=== PATIENT | female | born 1940 | race Caucasian/White ===

== ENCOUNTER 2018-06-21 11:14 | Inpatient (IN) ==
[2018-06-21] MEDS ORDERED: Chlorhexidine Gluconate 2% 1 Pack (2 Cloths) TOPICAL SCH (12:22)
[2018-06-21] MEDS ORDERED: Metoprolol Tartrate 25 MG Tablet PO SCH (12:22)
[2018-06-21] MEDS: Sodium Chlor 0.9% Inj 500 ML IV.SIG SCH (12:34)
[2018-06-21] MEDS ORDERED: ceFAZolin 2 GM Premix Inj 2 GM/50 ML PIGGYBACK IV.SIG SCH (13:00)
[2018-06-21] MEDS ORDERED: Lidocaine PF 1% Inj 5 ML Syringe OTHER ONE (14:54)
[2018-06-21] MEDS ORDERED: Sugammadex Inj 200 MG/2 ML Vial IV.PUSH ONE (15:51)
[2018-06-21] MEDS ORDERED: Naloxone Inj 0.4 MG/ML Vial IV.PUSH PRN (17:44)
[2018-06-21] MEDS ORDERED: Morphine Inj 30 MG/30 ML PCA.VIAL PCA ONE (17:59)
[2018-06-21] MEDS: Dextrose 5%/NaCl 0.9% Inj 1,000 ML IV.SIG SCH ×2 (18:07→21:43)
[2018-06-21] MEDS ORDERED: *Meperidine Inj 25 MG/ML Vial PERIprocedural Use ONLY ONE (18:19)
[2018-06-21] MEDS ORDERED: *Ondansetron Inj 4 MG/2 ML Vial PERIprocedural Use ONLY ONE (18:22)
[2018-06-21 18:29] LABS: Baso # (Auto) 0.1 th/mm3 (0.0-0.2); Baso % (Auto) 0.4 % (0.0-2.0); Eos % (Auto) 0.3 % (0.0-4.0); Hematocrit 37.7 % (35.0-46.0); Hemoglobin 12.6 gm/dL (11.6-15.3); Lymph # (Auto) 1.8 th/mm3 (1.0-4.8); Lymph % (Auto) 13.6 % (9.0-44.0); Mean Corpuscular HGB Conc 33.4 % (32.0-36.0); Mean Corpuscular Hemoglobin 31.3 pg (27.0-34.0); Mean Corpuscular Volume 93.9 fL (80.0-100.0); Mean Platelet Volume 7.3 fL (7.0-11.0); Mono # (Auto) 0.8 th/mm3 (0.0-0.9); Mono % (Auto) 5.8 % (0.0-8.0); Neut # (Auto) 10.5 th/mm3 (1.8-7.7); Neut % (Auto) 79.9 % (16.0-70.0); Platelet Count 283 th/mm3 (150-450); Red Blood Count 4.01 mil/mm3 (4.00-5.30); Red Cell Distribution Width 13.3 % (11.6-17.2); White Blood Count 13.1 th/mm3 (4.0-11.0)
[2018-06-21 18:54] LABS: Calcium 8.2 mg/dL (8.5-10.1); Carbon Dioxide 25.5 meq/L (21.0-32.0)
[2018-06-21] MEDS: Morphine Inj 30 MG/30 ML PCA.VIAL PCA PRN (18:55)
[2018-06-21] MEDS ORDERED: fentaNYL Citrate Inj 100 MCG/2 ML Ampul ONE (19:32)
[2018-06-21] MEDS: Famotidine PF Inj 20 MG/2 ML Vial IV.PUSH SCH (21:37)
[2018-06-21] MEDS: Heparin - SQ 10,000 UNITS/ML Vial SQ SCH (21:37)
[2018-06-22] MEDS: Dextrose 5%/NaCl 0.9% Inj 1,000 ML IV.SIG SCH ×5 (03:22→23:36)
[2018-06-22 06:58] LABS: Baso % (Auto) 0.3 % (0.0-2.0); Lymph # (Auto) 0.8 th/mm3 (1.0-4.8); Lymph % (Auto) 8.6 % (9.0-44.0); Mean Corpuscular HGB Conc 33.3 % (32.0-36.0); Mean Corpuscular Hemoglobin 31.6 pg (27.0-34.0); Mean Corpuscular Volume 94.9 fL (80.0-100.0); Mean Platelet Volume 7.7 fL (7.0-11.0); Mono # (Auto) 0.7 th/mm3 (0.0-0.9); Mono % (Auto) 6.7 % (0.0-8.0); Neut # (Auto) 8.2 th/mm3 (1.8-7.7); Neut % (Auto) 84.4 % (16.0-70.0); Platelet Count 251 th/mm3 (150-450); Red Blood Count 3.79 mil/mm3 (4.00-5.30); Red Cell Distribution Width 13.6 % (11.6-17.2); White Blood Count 9.8 th/mm3 (4.0-11.0)
[2018-06-22 07:41] LABS: Calcium 7.6 mg/dL (8.5-10.1); Potassium 3.8 meq/L (3.5-5.1)
[2018-06-22] MEDS: Heparin - SQ 10,000 UNITS/ML Vial SQ SCH ×2 (10:19→20:53)
[2018-06-22] MEDS: Famotidine PF Inj 20 MG/2 ML Vial IV.PUSH SCH ×2 (10:20→20:54)
[2018-06-22] MEDS: Sodium Chlor 0.9% Inj 500 ML IV.SIG SCH (10:20)
--- NOTE | 2018-06-22 11:08 | P.PN ---
Subjective Interval history: POD#1 s/p robotic assisted ascending colectomy nausea Physical Exam Vital signs: Vital Signs 06/21/18 12:12 06/21/18 17:51 06/21/18 18:00 Temperature 98.6 F 97.3 F L Pulse Rate 86 83 82 Respiratory Rate 16 16 20 Blood Pressure 143/74 H 141/68 H 152/67 H Pulse Oximetry 96 100 99 06/21/18 18:15 06/21/18 18:30 06/21/18 18:38 Temperature 98.0 F Pulse Rate 82 80 Respiratory Rate 16 11 L Blood Pressure 148/63 H 163/72 H Pulse Oximetry 100 95 100 06/21/18 18:56 06/21/18 19:00 06/21/18 19:30 Temperature Pulse Rate 80 Respiratory Rate 15 16 Blood Pressure Pulse Oximetry 06/21/18 20:00 06/21/18 21:00 06/21/18 22:00 Temperature Pulse Rate 82 84 81 Respiratory Rate 16 Blood Pressure 157/70 H Pulse Oximetry 95 06/21/18 23:00 06/21/18 23:45 06/22/18 00:00 Temperature 98.1 F Pulse Rate 82 76 78 Respiratory Rate 16 Blood Pressure 159/68 H Pulse Oximetry 95 06/22/18 01:00 06/22/18 02:00 06/22/18 03:00 Temperature 99.0 F Pulse Rate 80 82 81 Respiratory Rate 18 Blood Pressure 151/69 H Pulse Oximetry 95 06/22/18 04:00 06/22/18 05:00 06/22/18 06:00 Temperature Pulse Rate 84 85 84 Respiratory Rate Blood Pressure Pulse Oximetry Intake & Output 06/21/18 06/22/18 06/22/18 18:59 06:59 18:59 Intake Total 1850 / 1850 1490 / 1490 1100 / 1100 Output Total 300 / 300 550 / 550 Balance 1550 / 1550 940 / 940 1100 / 1100 Weight 62.2 kg 65 kg Intake: IV 150 / 150 1300 / 1300 1100 / 1100 D5W/Normal Saline Inj 1,000 ML 1000 / 1000 1000 / 1000 @ 125 mls/hr IV.SIG .Q8H [facility] Rx #:[id number] Ancef Inj 1,000 MG In NS Inj 200 / 200 100 ML @ 200 mls/hr IV.SIG Q8H [facility] Rx#:[id number] Flagyl 500 MG Inj 100 ML @ 200 100 / 100 100 / 100 100 / 100 mls/hr IV.SIG Q8H [facility] Rx#: [id number] Oral 190 / 190 Anesthesia Amount 1700 / 1700 Output: Estimated Blood Loss 50 / 50 Urine Amount (Catheter) 250 / 250 550 / 550 Indwelling Urethral Catheter 250 / 250 550 / 550 Other: Weight On Admission 62.2 kg - Routine Abdominal Exam Comments: Soft, nondistended, tender Dressings c/d/i - Urinary Catheter Management Indwelling Urethral Catheter Cath placed during this visit: yes Reason for continuing: Hourly intake/output Insertion date: 06/21/18 Insertion time: 15:10 Results - Labs CBC & Chem 7: 06/22/18 06:09 06/22/18 06:09 Laboratory Results - last 24 hr 06/21/18 06/21/18 06/21/18 11:48 18:09 18:09 WBC 13.1 H RBC 4.01 Hgb 12.6 Hct 37.7 MCV 93.9 MCH 31.3 MCHC 33.4 RDW 13.3 Plt Count 283 MPV 7.3 Neut % (Auto) 79.9 H Lymph % (Auto) 13.6 [place] % (Auto) 5.8 Eos % (Auto) 0.3 Baso % (Auto) 0.4 Neut # (Auto) 10.5 H Lymph # (Auto) 1.8 [place] # (Auto) 0.8 Eos # (Auto) 0.0 Baso # (Auto) 0.1 WBC Differential . Differential Comment Auto diff final Sodium 140 Potassium 4.0 Chloride 105 Carbon Dioxide 25.5 Anion Gap 10 BUN 14 Creatinine 0.89 Estimated GFR 61 L Random Glucose 131 H Calcium 8.2 L Blood Type A Positive Blood Type Recheck Not needed Antibody Screen Negative 06/22/18 06/22/18 06:09 06:09 WBC 9.8 RBC 3.79 L Hgb 12.0 Hct 36.0 MCV 94.9 MCH 31.6 MCHC 33.3 RDW 13.6 Plt Count 251 MPV 7.7 Neut % (Auto) 84.4 H Lymph % (Auto) 8.6 L [place] % (Auto) 6.7 Eos % (Auto) 0.0 Baso % (Auto) 0.3 Neut # (Auto) 8.2 H Lymph # (Auto) 0.8 L [place] # (Auto) 0.7 Eos # (Auto) 0.0 Baso # (Auto) 0.0 WBC Differential . Differential Comment Auto diff final Sodium 141 Potassium 3.8 Chloride 106 Carbon Dioxide 27.0 Anion Gap 8 BUN 10 Creatinine 0.82 Estimated GFR 67 L Random Glucose 203 H Calcium 7.6 L Blood Type Blood Type Recheck Antibody Screen Assessment and Plan - Assessment (1) Polyp of ascending colon Code(s): D12.2 - Benign neoplasm of ascending colon Status: Acute Plan: Try phenergan for nausea decrease IVF, lasix Mobilize D/C barlow
[2018-06-22] MEDS: Morphine Inj 30 MG/30 ML PCA.VIAL PCA PRN (18:30)
[2018-06-22] MEDS ORDERED: Temazepam 15 MG Capsule PO PRN (20:10)
[2018-06-23] MEDS: Dextrose 5%/NaCl 0.9% Inj 1,000 ML IV.SIG SCH ×2 (02:29→15:06)
[2018-06-23 04:26] LABS: Baso % (Auto) 0.2 % (0.0-2.0); Hematocrit 40.4 % (35.0-46.0); Hemoglobin 13.6 gm/dL (11.6-15.3); Lymph # (Auto) 0.6 th/mm3 (1.0-4.8); Lymph % (Auto) 5.1 % (9.0-44.0); Mean Corpuscular HGB Conc 33.7 % (32.0-36.0); Mean Corpuscular Hemoglobin 31.2 pg (27.0-34.0); Mean Corpuscular Volume 92.6 fL (80.0-100.0); Mean Platelet Volume 7.7 fL (7.0-11.0); Mono # (Auto) 0.4 th/mm3 (0.0-0.9); Mono % (Auto) 3.7 % (0.0-8.0); Neut # (Auto) 10.5 th/mm3 (1.8-7.7); Platelet Count 284 th/mm3 (150-450); Red Blood Count 4.36 mil/mm3 (4.00-5.30); Red Cell Distribution Width 13.6 % (11.6-17.2); White Blood Count 11.5 th/mm3 (4.0-11.0)
[2018-06-23 04:52] LABS: Calcium 8.1 mg/dL (8.5-10.1); Carbon Dioxide 26.4 meq/L (21.0-32.0); Potassium 3.1 meq/L (3.5-5.1)
[2018-06-23] MEDS: Heparin - SQ 10,000 UNITS/ML Vial SQ SCH ×2 (09:11→20:55)
[2018-06-23] MEDS: Famotidine PF Inj 20 MG/2 ML Vial IV.PUSH SCH ×2 (09:12→20:55)
--- NOTE | 2018-06-23 11:51 | P.PN ---
Subjective Interval history: POD#2 s/p robotic assisted ascending colectomy still with nausea, some flatus Physical Exam Vital signs: Vital Signs 06/22/18 12:00 06/22/18 13:00 06/22/18 14:00 Temperature Pulse Rate 88 89 89 Respiratory Rate Blood Pressure Pulse Oximetry 06/22/18 15:00 06/22/18 16:00 06/22/18 17:00 Temperature 98 F Pulse Rate 98 H 93 H 92 H Respiratory Rate 16 Blood Pressure 164/79 H Pulse Oximetry 94 L 06/22/18 18:00 06/22/18 19:00 06/22/18 20:00 Temperature 98.4 F Pulse Rate 96 H 90 90 Respiratory Rate 16 Blood Pressure 175/79 H Pulse Oximetry 95 06/22/18 21:00 06/22/18 22:00 06/22/18 23:00 Temperature 98.5 F Pulse Rate 98 H 88 86 Respiratory Rate 20 Blood Pressure 183/88 H Pulse Oximetry 93 L 06/23/18 00:00 06/23/18 01:00 06/23/18 02:00 Temperature Pulse Rate 80 82 84 Respiratory Rate Blood Pressure Pulse Oximetry 06/23/18 03:00 06/23/18 04:00 06/23/18 05:00 Temperature 98.4 F Pulse Rate 95 H 82 87 Respiratory Rate 16 Blood Pressure 151/67 H Pulse Oximetry 94 L 06/23/18 06:00 06/23/18 07:00 06/23/18 08:00 Temperature 97.9 F Pulse Rate 86 101 H 84 Respiratory Rate 18 Blood Pressure 158/72 H Pulse Oximetry 93 L 06/23/18 09:00 06/23/18 10:00 06/23/18 11:00 Temperature 98.3 F Pulse Rate 93 H 82 95 H Respiratory Rate 17 Blood Pressure 155/87 H Pulse Oximetry 95 Intake & Output 06/22/18 06/23/18 06/23/18 18:59 06:59 18:59 Intake Total 1974 / 1974 1240 / 1240 Output Total 1400 / 1400 900 / 900 Balance 575 / 575 340 / 340 Weight 64.5 kg Intake: IV 1300 / 1300 1000 / 1000 D5W/Normal Saline Inj 1,000 ML 1000 / 1000 1000 / 1000 @ 75 mls/hr IV[facility]SIG [id number] [facility] Rx#:[id number] Ancef Inj 1,000 MG In NS Inj 100 / 100 100 ML @ 200 mls/hr IV.SIG Q8H [facility] Rx#:[id number] Flagyl 500 MG Inj 100 ML @ 200 200 / 200 mls/hr IV.SIG Q8H [facility] Rx#: [id number] Oral 675 / 675 240 / 240 Output: Urine 200 / 200 900 / 900 Urine Amount (Catheter) 1200 / 1200 Indwelling Urethral Catheter 1200 / 1200 Other: Date of Last Bowel Movement 06/21/18 06/21/18 - Routine Abdominal Exam Comments: Abdomen soft, mild distension, tender wounds clean - Urinary Catheter Management Indwelling Urethral Catheter Cath placed during this visit: yes, but has since been removed by the nurse Reason for continuing: Decision to DC catheter Insertion date: 06/21/18 Insertion time: 15:10 Removal date: 06/22/18 Removal time: 14:05 Results - Labs CBC & Chem 7: 06/23/18 03:51 06/23/18 03:51 Laboratory Results - last 24 hr 06/23/18 06/23/18 03:51 03:51 WBC 11.5 H RBC 4.36 Hgb 13.6 Hct 40.4 MCV 92.6 MCH 31.2 MCHC 33.7 RDW 13.6 Plt Count 284 MPV 7.7 Neut % (Auto) 91.0 H Lymph % (Auto) 5.1 L [place] % (Auto) 3.7 Eos % (Auto) 0.0 Baso % (Auto) 0.2 Neut # (Auto) 10.5 H Lymph # (Auto) 0.6 L [place] # (Auto) 0.4 Eos # (Auto) 0.0 Baso # (Auto) 0.0 WBC Differential . Differential Comment Auto diff final Sodium 139 Potassium 3.1 L Chloride 104 Carbon Dioxide 26.4 Anion Gap 9 BUN 7 Creatinine 0.82 Estimated GFR 67 L Random Glucose 193 H Calcium 8.1 L Assessment and Plan - Assessment (1) Polyp of ascending colon Code(s): D12.2 - Benign neoplasm of ascending colon Status: Acute Plan: Try compazine Stop morphine Mobilize Transfer to
[2018-06-23] MEDS ORDERED: Potassium Chloride 25 MEQ Effervescent Tablet PO PRN (12:08)
[2018-06-23] MEDS ORDERED: Potassium Chlor 20 mEq Premix 20 MEQ/100 ML PIGGYBACK IV.SIG PRN ×2 (12:08)
[2018-06-23] MEDS ORDERED: Potassium Chlor 40 mEq Premix 40 MEQ/100 ML PIGGYBACK IV.SIG PRN ×2 (12:08)
[2018-06-23] MEDS ORDERED: HYDROmorphone PF Inj 2 MG/ML Vial IV.PUSH PRN (12:15)
[2018-06-23] MEDS ORDERED: Potassium Chloride Inj 30 MEQ in Sodium Chlor 0.9% Inj 100 ML IV.CONT ONE (12:30)
[2018-06-23] MEDS: Ketorolac Inj 30 MG/ML (IVP) Vial IV.PUSH SCH ×3 (12:51→23:22)
[2018-06-23] MEDS: Simethicone 125 MG Chew Tablet PO SCH (12:53)
[2018-06-23] MEDS: Potassium Chlor 10 mEq Premix 10 MEQ/100 ML PIGGYBACK IV.SIG SCH ×3 (14:11→16:10)
[2018-06-24] MEDS: dilTIAZem Inj 125 MG in Sodium Chlor 0.9% Inj 100 ML IV.CONT PRN ×3 (02:43→22:27)
[2018-06-24] MEDS: Ketorolac Inj 30 MG/ML (IVP) Vial IV.PUSH SCH ×4 (05:27→23:18)
--- NOTE | 2018-06-24 07:24 | MP ---
cc: Felipa Troncoso MD, Dr. DATE OF OPERATION: 06/21/2018 PREOPERATIVE DIAGNOSIS: Ascending colon polyp. POSTOPERATIVE DIAGNOSIS: Ascending colon polyp. PROCEDURE: Robotic ascending colectomy. SURGEON: Felipa Troncoso MD. AGENT BASED MODELER: Isaías. ANESTHESIA: General per ET tube. ESTIMATED BLOOD LOSS: 50 mL INDICATIONS: The patient is a 78-year-old female who, on recent colonoscopy, was noted to have a large sessile polyp which was unable to be removed via the colonoscope. OPERATIVE FINDINGS: Large sessile polyp in the ascending colon just distal to the cecum. OPERATIVE COURSE: The patient was brought to the operating room, placed in the supine position. After induction of general anesthesia, the bed was flexed slightly. All bony prominences were carefully padded. The skin of the anterior abdominal wall was then prepped and draped in the usual sterile fashion. A site for the camera was chosen, being located 2 cm to the right and 2 cm caudal to the umbilicus. A 10/12 port was placed at this location under direct vision and CO2 insufflation was undertaken. A brief abdominal survey was performed and there was nothing noted that would preclude the robotic approach. There were some minor adhesions of the omentum to the ascending colon, which were dissected free using electrocautery. The remainder of the ports were placed as follows. #1 port was placed just under the left costal margin 2 cm to the left of the midclavicular line. The #5 assist port was placed equidistant from the camera and the #1 port in the left midclavicular line. The #2 port was placed in the right suprapubic line just to the right of the midline. The #3 port was placed just inside the right anterior superior iliac spine. The patient was positioned with head down and slightly to the left and the small bowel was gently but somewhat tediously brought up and out of the pelvis to lie up in the upper abdomen, mostly due to this having a lot of small bowel. Eventually, we were able to get the bowel and get good visualization of the terminal ileum and cecum, and the robot was docked. The terminal ileum and cecum was retracted anteriorly and the posterior peritoneal attachments of the ascending colon mesentery were carefully dissected free up to the level of the duodenum. This was carefully dissected free from the sweep of the duodenum, and dissection continued in this plane and laterally, almost to the right lateral side wall. Small bowel was then returned to its more normal position and gentle tension was placed on the cecum to the right lower quadrant to put the ileocolic vessels on stretch. A window was made around the ileocolic vessels and they were taken distally in light of this only being a polyp. A window was made and a white load of the [place] [facility] stapler was placed across the vessels. This was closed, held for 30 seconds, fired and removed. The lateral peritoneal attachments of the cecum and ascending colon were then dissected free using electrocautery, carefully dissecting up and around the hepatic flexure and continuing our posterior dissection, freeing the ascending colon from the posterior peritoneum as well, until we had full mobility of the terminal ileum, cecum, ascending colon and hepatic flexure. At this point, I felt that we had adequate mobility for our planned extracorporeal anastomosis and the robot was undocked. A 10 cm incision was made midway between the umbilicus and the symphysis pubis in the right midclavicular line transversely. Electrocautery dissection was carried down to the fascia of the anterior abdominal wall, which split the length of the skin incision. The fibers of the rectus abdominis muscle were then split but not divided and gently spread apart. The posterior fascia was then incised the length of the skin incision as well. The cecum was then grasped and the cecum, terminal ileum and ascending colon were gently prolapsed out through the incision. A site was then chosen for the division of the terminal ileum, approximately 10 cm proximal to the ileocecal valve. The mesentery was serially divided and ligated using 0 Vicryl ties and a load of the [facility] stapler was placed across the bowel at this level, fired and removed. The site was then chosen for division of the ascending colon about midway up its length, allowing plenty of length for reanastomosis, but in an area where I felt that we would have definitely gotten our polyp. The mesentery at this level was serially divided and ligated using 0 Vicryl ties and a reload of the [facility] stapler was placed across the bowel at this level. The specimen was then taken to a back table where it was opened and the polyp was confirmed and that we had about a 2-3 cm margin. The antimesenteric corners of the staple line were removed, one limb of the gastrointestinal christian placed on each limb of the bowel. This was closed along the antimesenteric border, fired, and removed, thus creating an enteroenterostomy. The resulting enterotomy was closed transversely with a TX 60 stapling device. The anastomosis appeared pink and healthy and was palpably widely patent. A simple stay suture was placed in the distal end of this anastomosis using 3-0 Vicryl and the anastomosis was prolapsed back into the peritoneal cavity. The posterior fascia and anterior abdominal wall were closed in a running fashion using #1 PDS in the anterior fascia. The intra-abdominal wall was closed in a running fashion using #1 PDS. The wound was copiously irrigated with warm normal saline and the skin was closed in a running subcuticular fashion using 3-0 Vicryl. CO2 insufflation was then resumed and the 10/12 trocar sites just to the left of the umbilicus and the right lower quadrant, the fascia was closed using the crossbow device and 0 Vicryl suture. These sutures were placed but not secured until the CO2 was removed from the peritoneal cavity. There were no significant areas of bleeding or other worrisome areas noted and the camera was then removed. The CO2 was removed through the remaining trocars and the trocars were then removed. The fascial sutures were then secured and the skin at the trocar sites was then closed in an interrupted subcuticular fashion using 3-0 Vicryl. Steri-Strips and sterile dressings were then applied. All sponge, needle and instrument counts were correct and the patient was returned to the Postanesthesia Care Unit in stable condition. MD ILIANA Balbuena/neftali , 05:41 PM , 05:55 PM [facility]
[2018-06-24] MEDS: Famotidine PF Inj 20 MG/2 ML Vial IV.PUSH SCH ×2 (08:25→21:33)
[2018-06-24] MEDS: Heparin - SQ 10,000 UNITS/ML Vial SQ SCH (08:25)
[2018-06-24] MEDS: Simethicone 125 MG Chew Tablet PO SCH (08:25)
[2018-06-24] MEDS: Dextrose 5%/NaCl 0.9% Inj 1,000 ML IV.SIG SCH ×2 (12:26→17:29)
[2018-06-24] MEDS: Metoprolol Tartrate 25 MG Tablet PO SCH ×2 (15:09→21:33)
--- NOTE | 2018-06-24 16:25 | P.PN ---
Subjective Interval history: POD#3 s/p robotic ascending colectomy New Onset Afib with RVR Physical Exam Vital signs: Vital Signs 06/23/18 17:00 06/23/18 18:00 06/23/18 19:00 Temperature 98.3 F Pulse Rate 92 H 87 90 Respiratory Rate 18 Blood Pressure 173/78 H Pulse Oximetry 95 06/23/18 20:00 06/23/18 21:00 06/23/18 22:00 Temperature Pulse Rate 90 114 H 90 Respiratory Rate Blood Pressure Pulse Oximetry 06/23/18 23:00 06/24/18 00:00 06/24/18 00:59 Temperature 98.8 F Pulse Rate 94 H 79 82 Respiratory Rate 16 Blood Pressure 131/62 Pulse Oximetry 92 L 06/24/18 02:00 06/24/18 03:00 06/24/18 04:00 Temperature 98.6 F Pulse Rate 139 H 157 H 150 H Respiratory Rate 16 Blood Pressure 127/72 Pulse Oximetry 93 L 06/24/18 05:00 06/24/18 06:00 06/24/18 07:00 Temperature Pulse Rate 145 H 141 H 106 H Respiratory Rate Blood Pressure Pulse Oximetry 06/24/18 08:00 06/24/18 08:10 06/24/18 09:00 Temperature 98.4 F Pulse Rate 124 H 131 H 122 H Respiratory Rate 16 Blood Pressure 107/73 Pulse Oximetry 94 L 06/24/18 10:00 06/24/18 10:58 06/24/18 11:00 Temperature 97.6 F Pulse Rate 142 H 105 H 135 H Respiratory Rate 16 Blood Pressure 106/56 L Pulse Oximetry 93 L 06/24/18 11:41 06/24/18 12:00 06/24/18 13:00 Temperature Pulse Rate 107 H 106 H 114 H Respiratory Rate Blood Pressure Pulse Oximetry 06/24/18 14:00 06/24/18 14:05 06/24/18 14:55 Temperature 97.6 F Pulse Rate 114 H 111 H Respiratory Rate 16 Blood Pressure 119/64 123/67 129/72 Pulse Oximetry 94 L 06/24/18 15:00 Temperature Pulse Rate 94 H Respiratory Rate Blood Pressure Pulse Oximetry Intake & Output 06/23/18 06/24/18 06/24/18 18:59 06:59 18:59 Intake Total 1260 / 1260 661 / 661 125 / 125 Output Total 400 / 400 300 / 300 Balance 860 / 860 361 / 361 125 / 125 Weight 65.5 kg Intake: IV 300 / 300 421 / 421 125 / 125 Cardizem Inj 125 MG In NS Inj 125 / 125 100 ML @ 5 MG/HR 5 mls/hr IV. CONT TITRATE PRN Rx#:[id number] D5W/Normal Saline Inj 1,000 ML 421 / 421 @ 50 mls/hr IV.SIG .Q20H [facility] Rx #:[id number] KCl 10 mEq Premix Inj 10 meq In 300 / 300 100 ml @ 100 mls/hr IV.SIG Q1H [facility] Rx#:[id number] Oral 960 / 960 240 / 240 Output: Urine 400 / 400 300 / 300 Other: Date of Last Bowel Movement 06/21/18 06/21/18 - Routine Abdominal Exam Comments: Abdomen soft, mild distension, tender wounds clean - Urinary Catheter Management Indwelling Urethral Catheter Cath placed during this visit: yes, but has since been removed by the nurse Reason for continuing: Decision to DC catheter Insertion date: 06/21/18 Insertion time: 15:10 Removal date: 06/22/18 Removal time: 14:05 Results - Labs CBC & Chem 7: 06/23/18 03:51 06/23/18 03:51 Laboratory Results - last 24 hr 06/24/18 02:44 Troponin I Less than 0.02 L Assessment and Plan - Assessment (1) Polyp of ascending colon Code(s): D12.2 - Benign neoplasm of ascending colon Status: Acute Plan: quite a bit of belching - hold at sips and chips new onset afib, no evidence of WI, appreciate Dr. Foss's assistance Hold off on Eliquis for now
--- NOTE | 2018-06-24 17:05 | ECG ---
Date Performed: 06/24/2018 Time Performed: 02:53:02 PTAGE: 78 years EKG: Atrial fibrillation with uncontrolled ventricular response Extensive ST-T changes may be du e to myocardial ischemia Abnormal ECG Compared to PREVIOUS TRACING , now with AF RVR PREVIOUS TRACIN06/14/2018 08.13 DOCTOR: Reina Cobian Interpretating Date/Time 06/24/2018 17:05:09
[2018-06-24] MEDS: Heparin Drip 25,000 UNIT/250 ML BAG IV.CONT PRN (17:30)
[2018-06-25 01:59] LABS: Baso # (Auto) 0.1 th/mm3 (0.0-0.2); Baso % (Auto) 0.6 % (0.0-2.0); Eos # (Auto) 0.1 th/mm3 (0.0-0.4); Eos % (Auto) 0.8 % (0.0-4.0); Hematocrit 42.1 % (35.0-46.0); Hemoglobin 13.8 gm/dL (11.6-15.3); Lymph # (Auto) 1.2 th/mm3 (1.0-4.8); Lymph % (Auto) 13.7 % (9.0-44.0); Mean Corpuscular HGB Conc 32.7 % (32.0-36.0); Mean Corpuscular Hemoglobin 30.7 pg (27.0-34.0); Mean Corpuscular Volume 94.1 fL (80.0-100.0); Mono # (Auto) 0.8 th/mm3 (0.0-0.9); Mono % (Auto) 9.5 % (0.0-8.0); Neut # (Auto) 6.6 th/mm3 (1.8-7.7); Neut % (Auto) 75.4 % (16.0-70.0); Platelet Count 300 th/mm3 (150-450); Red Blood Count 4.48 mil/mm3 (4.00-5.30); Red Cell Distribution Width 13.3 % (11.6-17.2); White Blood Count 8.7 th/mm3 (4.0-11.0)
[2018-06-25 02:13] LABS: Calcium 8.1 mg/dL (8.5-10.1); Carbon Dioxide 25.6 meq/L (21.0-32.0); Potassium 3.3 meq/L (3.5-5.1)
[2018-06-25] MEDS: Ketorolac Inj 30 MG/ML (IVP) Vial IV.PUSH SCH ×2 (05:14→11:24)
--- NOTE | 2018-06-25 07:12 | P.CONCA ---
History of Present Illness Service: Cardiology Primary Care Provider: No Primary Care Physician Family Provider: No Primary Care Physician Chief Complaint: afib History of Present Illness: 78 year old with new onset afib. No prior history. Currently still in afib without symptoms. CHADSVASC2 score of 3 (age, gender ) giving a 3.2 % annual risk of stroke. No DM2, CHF, CVA. No bleeding. No further upcoming surgery. Review of Systems All other systems reviewed negative except as stated in [facility] - History History Provided By: Patient - Medical History Medical History: Medical History (Last Reviewed 06/21/18 @ 11:47 by Yissel Lantigua) Hx of colonic polyp Hx of gastric ulcer Wears dentures - Surgical History Surgical History: Surgical History (Last Reviewed 06/21/18 @ 11:51 by Yissel Lantigua) Hx of cataract removal with insertion of prosthetic lens Hx of colonoscopy - Tobacco History Second Hand Smoke Exposure: No Tobacco Use In Past 30 Days: No Smoking Status: Former smoker Tobacco Type: Cigarettes - Alcohol History How Often Do You Have a Drink Containing Alcohol: 4 or more times a week - Substance Use History Substance History: No History of Abuse - Travel History Recent Travel in the [place] Within the Last 8 Weeks: No Recent Travel Out of the Country Within the Last 8 Weeks: No Medications and Allergies Active Medications: Active Medications Hydrocodone Bitart/Acetaminophen ([place] 5/325) 1 tab PO Q6H PRN PRN Reason: PAIN SCALE 1 TO 5 Hydrocodone Bitart/Acetaminophen ([place] 5/325) 2 tab PO Q6H PRN PRN Reason: PAIN SCALE 6 TO 10 Famotidine (Pepcid Pf Inj) 20 mg IV.PUSH Q12HR [facility] Last Admin: 06/24/18 21:33 Dose: 20 mg Furosemide (Lasix Inj) 20 mg IV.PUSH BID@0900,1800 [facility] Last Admin: 06/24/18 17:28 Dose: 20 mg Hydromorphone HCl (Dilaudid Pf Inj) 0.2 mg IV.PUSH Q4H PRN PRN Reason: PAIN 1-10 Sodium Chloride (Ns Inj) 500 mls @ 30 mls/hr IV.SIG .Q10H [facility] Last Admin: 06/22/18 10:20 Dose: Not Given Dextrose/Sodium Chloride (D5w/Normal Saline Inj) 1,000 mls @ 50 mls/hr IV.SIG .Q20H [facility] Last Admin: 06/24/18 17:29 Dose: 50 mls/hr Potassium Chloride (Kcl 40 Meq Premix Inj) 40 meq in 100 mls @ 25 mls/hr IV.SIG Q2H PRN PRN Reason: For Potassium 2.8 - 3.2 mEq/L Potassium Chloride (Kcl 20 Meq Premix Inj) 20 meq in 100 mls @ 50 mls/hr IV.SIG Q2H PRN PRN Reason: For Potassium 3.3 - 3.5 mEq/L Potassium Chloride (Kcl 40 Meq Premix Inj) 40 meq in 100 mls @ 25 mls/hr IV.SIG UNSCH PRN PRN Reason: For Potassium 3.3 - 3.5 mEq/L Potassium Chloride (Kcl 20 Meq Premix Inj) 20 meq in 100 mls @ 50 mls/hr IV.SIG Q2H PRN PRN Reason: For Potassium 2.8 - 3.2 mEq/L Diltiazem HCl 125 mg/ Sodium (Chloride) 125 mls @ 5 mls/hr IV.CONT TITRATE PRN ; Protocol PRN Reason: Per Protocol Last Titration: 06/25/18 03:05 Dose: 15 mg/hr, 15 mls/hr Heparin Sodium/Dextrose (Heparin/D5w 25,000 U/250 Ml) 25,000 unit in 250 mls @ 8 mls/hr IV.CONT TITRATE PRN; Protocol PRN Reason: Per Protocol Last Titration: 06/25/18 02:59 Dose: 900 units/hr, 9 mls/hr Ketorolac Tromethamine (Toradol Inj) 15 mg IV.PUSH Q6HR [facility] Stop: 06/28/18 12:14 Last Admin: 06/25/18 05:14 Dose: Not Given Metoclopramide HCl (Reglan Inj) 10 mg IV.PUSH Q8H [facility]; Protocol Last Admin: 06/25/18 00:36 Dose: 10 mg Metoprolol Tartrate (Lopressor) 25 mg PO BID [facility] Last Admin: 06/24/18 21:33 Dose: 25 mg Ondansetron HCl (Zofran Inj) 4 mg IV.PUSH Q6H PRN PRN Reason: NAUSEA Last Admin: 06/22/18 23:35 Dose: 4 mg Potassium Bicarb/Potassium Chloride (K-Lyte Cl Eff) 50 meq PO UNSCH PRN PRN Reason: For Potassium 3.3 - 3.5 mEq/L Simethicone (Phazyme Chew) 125 mg PO DAILY [facility] Last Admin: 06/24/18 08:25 Dose: 125 mg Temazepam (Restoril) 15 mg PO HS PRN PRN Reason: INSOMNIA Last Admin: 06/22/18 20:55 Dose: 15 mg Allergies Allergy/AdvReac Type Severity Reaction Status Date / Time azithromycin Allergy Severe Anaphylaxis Verified 06/14/18 08:22 doxycycline Allergy Severe Anaphylaxis Verified 06/14/18 08:22 minocycline Allergy Severe Anaphylaxis Verified 06/14/18 08:22 tigecycline Allergy Severe Anaphylaxis Verified 06/14/18 08:22 oxycodone [From Percocet] AdvReac Severe Depression Verified 06/14/18 08:41 [id number]-[id number]-Mlh Reductase AdvReac Severe Muscle Pain Verified 06/14/18 08:22 Inhibitor Home Medications Medication Instructions Recorded Confirmed Type aspirin [Adult Low Dose Aspirin] 81 mg PO DAILY 06/14/18 06/21/18 History calcium carbonate-vitamin D3 2 tab PO DAILY 06/14/18 06/21/18 History [Calcium 600 + D(3)] [id number]-EC-calcium-mins 1 tab PO DAILY 06/14/18 06/21/18 History [Daily Multiple For Women] vitamin E 400 unit PO DAILY 06/14/18 06/21/18 History Exam Vital signs: Vital Signs 06/24/18 08:00 06/24/18 08:10 06/24/18 09:00 Temperature 98.4 F Pulse Rate 124 H 131 H 122 H Respiratory Rate 16 Blood Pressure 107/73 Pulse Oximetry 94 L 06/24/18 10:00 06/24/18 10:58 06/24/18 11:00 Temperature 97.6 F Pulse Rate 142 H 105 H 135 H Respiratory Rate 16 Blood Pressure 106/56 L Pulse Oximetry 93 L 06/24/18 11:41 06/24/18 12:00 06/24/18 13:00 Temperature Pulse Rate 107 H 106 H 114 H Respiratory Rate Blood Pressure Pulse Oximetry 06/24/18 14:00 06/24/18 14:05 06/24/18 14:55 Temperature 97.6 F Pulse Rate 114 H 111 H Respiratory Rate 16 Blood Pressure 119/64 123/67 129/72 Pulse Oximetry 94 L 06/24/18 15:00 06/24/18 16:00 06/24/18 17:00 Temperature Pulse Rate 94 H 104 H 90 Respiratory Rate Blood Pressure Pulse Oximetry 06/24/18 18:00 06/24/18 19:00 06/24/18 20:00 Temperature 98 F Pulse Rate 96 H 83 96 H Respiratory Rate 16 Blood Pressure 113/75 Pulse Oximetry 94 L 06/24/18 21:00 06/24/18 22:00 06/24/18 23:00 Temperature 98.8 F Pulse Rate 90 100 H 87 Respiratory Rate 16 Blood Pressure 104/58 L Pulse Oximetry 94 L 06/25/18 00:00 06/25/18 01:00 06/25/18 02:00 Temperature Pulse Rate 89 87 100 H Respiratory Rate Blood Pressure Pulse Oximetry 06/25/18 03:00 06/25/18 04:00 06/25/18 05:00 Temperature 98.8 F Pulse Rate 87 93 H 96 H Respiratory Rate 16 Blood Pressure 104/58 L Pulse Oximetry 94 L 06/25/18 06:00 Temperature Pulse Rate 85 Respiratory Rate Blood Pressure Pulse Oximetry Intake & Output 06/24/18 06/25/18 06/25/18 18:59 06:59 18:59 Intake Total 845 / 845 155 / 155 Output Total 580 / 580 500 / 500 Balance 265 / 265 -345 / -345 Weight 66 kg Intake: IV 125 / 125 125 / 125 Cardizem Inj 125 MG In NS Inj 125 / 125 125 / 125 100 ML @ 5 MG/HR 5 mls/hr IV. CONT TITRATE PRN Rx#:[id number] Oral 720 / 720 30 / 30 Output: Urine 580 / 580 500 / 500 Other: Date of Last Bowel Movement 06/25/18 # Bowel Movements 0 - Constitutional no acute distress - Routine HEENT Exam Head: Present: normocephalic Eye: Present: EOMI ENT: Present: mucous membranes moist - Routine Neck Exam Absent: JVD - Routine Chest/Breast/Axilla Exam Chest wall: Absent: tenderness - Routine Respiratory Exam Present: CTA bilaterally - Routine Cardiovascular Exam Present: S1, S2, irregular rhythm - Routine Abdominal Exam Present: soft, normoactive bowel sounds - Routine Neurological Exam Present: alert, oriented X3, CN II-XII intact Results 06/25/18 01:11 06/25/18 01:11 Cardiac Enzymes 06/24/18 Range/Units 02:44 Troponin I Less than 0.02 L (0.02-0.05) ng/mL Coagulation 06/24/18 06/25/18 Range/Units 17:51 01:11 APTT 23.2 L 31.9 H D (24.3-30.1) sec CBC 06/25/18 Range/Units 01:11 WBC 8.7 (4.0-11.0) th/mm3 RBC 4.48 (4.00-5.30) mil/mm3 Hgb 13.8 (11.6-15.3) gm/dL Hct 42.1 (35.0-46.0) % Plt Count 300 (150-450) th/mm3 Neut # (Auto) 6.6 (1.8-7.7) th/mm3 Lymph # (Auto) 1.2 (1.0-4.8) th/mm3 [place] # (Auto) 0.8 (0.0-0.9) th/mm3 Eos # (Auto) 0.1 (0.0-0.4) th/mm3 Baso # (Auto) 0.1 (0.0-0.2) th/mm3 Comprehensive Metabolic Panel 06/25/18 Range/Units 01:11 Sodium 140 (136-145) meq/L Potassium 3.3 L (3.5-5.1) meq/L Chloride 105 (98-107) meq/L Carbon Dioxide 25.6 (21.0-32.0) meq/L BUN 18 (7-18) mg/dL Creatinine 1.07 H (0.50-1.00) mg/dL Calcium 8.1 L (8.5-10.1) mg/dL Intake and Output 06/24/18 06/25/18 06/25/18 22:59 06:59 14:59 Intake Total 845 / 845 30 / 30 Output Total 580 / 580 500 / 500 Balance 265 / 265 -470 / -470 Intake: IV 125 / 125 Cardizem Inj 125 MG In NS Inj 125 / 125 100 ML @ 5 MG/HR 5 mls/hr IV. CONT TITRATE PRN Rx#:[id number] Oral 720 / 720 30 / 30 Output: Urine 580 / 580 500 / 500 Other: Date of Last Bowel Movement 06/25/18 # Bowel Movements 0 Weight 66 kg EKG interpretations - Dysrhythmias Supraventricular dysrhythmia: atrial fibrillation Assessment and Plan - Plan New onset afib continue cardiazem drip and start oral metoprolol. Will uptitrate to a goal of 110 at rest per the our contemporary trial data. Allow for synergy for two AV faraz blockers. No JOSLYN + cardioversion as patient not quite a candidate for NOAC therapy per Surgery so will place the patient on heparin till then. Patient will be d/c on Eliquis. Thank you. Please call with any questions.
[2018-06-25] MEDS: Simethicone 125 MG Chew Tablet PO SCH (09:08)
[2018-06-25] MEDS: dilTIAZem 30 MG Tablet PO SCH ×4 (09:08→20:20)
[2018-06-25] MEDS: Famotidine PF Inj 20 MG/2 ML Vial IV.PUSH SCH ×2 (09:08→20:20)
--- NOTE | 2018-06-25 13:09 | P.PN ---
Subjective Interval history: POD#4 s/p robotic ascending colectomy comfortable, hungry Physical Exam Vital signs: Vital Signs 06/24/18 14:00 06/24/18 14:05 06/24/18 14:55 Temperature 97.6 F Pulse Rate 114 H 111 H Respiratory Rate 16 Blood Pressure 119/64 123/67 129/72 Pulse Oximetry 94 L 06/24/18 15:00 06/24/18 16:00 06/24/18 17:00 Temperature Pulse Rate 94 H 104 H 90 Respiratory Rate Blood Pressure Pulse Oximetry 06/24/18 18:00 06/24/18 19:00 06/24/18 20:00 Temperature 98 F Pulse Rate 96 H 83 96 H Respiratory Rate 16 Blood Pressure 113/75 Pulse Oximetry 94 L 06/24/18 21:00 06/24/18 22:00 06/24/18 23:00 Temperature 98.8 F Pulse Rate 90 100 H 87 Respiratory Rate 16 Blood Pressure 104/58 L Pulse Oximetry 94 L 06/25/18 00:00 06/25/18 01:00 06/25/18 02:00 Temperature Pulse Rate 89 87 100 H Respiratory Rate Blood Pressure Pulse Oximetry 06/25/18 03:00 06/25/18 04:00 06/25/18 05:00 Temperature 98.8 F Pulse Rate 87 93 H 96 H Respiratory Rate 16 Blood Pressure 104/58 L Pulse Oximetry 94 L 06/25/18 06:00 06/25/18 07:00 06/25/18 11:00 Temperature 98.8 F 98.1 F Pulse Rate 85 104 H 99 H Respiratory Rate 18 18 Blood Pressure 94/51 L 118/70 Pulse Oximetry 93 L 99 Intake & Output 06/24/18 06/25/18 06/25/18 18:59 06:59 18:59 Intake Total 845 / 845 155 / 155 Output Total 580 / 580 500 / 500 Balance 265 / 265 -345 / -345 Weight 66 kg Intake: IV 125 / 125 125 / 125 Cardizem Inj 125 MG In NS Inj 125 / 125 125 / 125 100 ML @ 5 MG/HR 5 mls/hr IV. CONT TITRATE PRN Rx#:[id number] Oral 720 / 720 30 / 30 Output: Urine 580 / 580 500 / 500 Other: Date of Last Bowel Movement 10/09/18 10/09/18 # Bowel Movements 0 - Routine Abdominal Exam Comments: Abdomen soft, mod distension, nontender wounds clean - Urinary Catheter Management Indwelling Urethral Catheter Cath placed during this visit: yes, but has since been removed by the nurse Reason for continuing: Decision to DC catheter Insertion date: 06/21/18 Insertion time: 15:10 Removal date: 06/22/18 Removal time: 14:05 Results - Labs CBC & Chem 7: 06/25/18 01:11 06/25/18 01:11 Laboratory Results - last 24 hr 06/24/18 06/25/18 06/25/18 17:51 01:11 01:11 WBC 8.7 RBC 4.48 Hgb 13.8 Hct 42.1 MCV 94.1 MCH 30.7 MCHC 32.7 RDW 13.3 Plt Count 300 MPV 8.0 Neut % (Auto) 75.4 H Lymph % (Auto) 13.7 [place] % (Auto) 9.5 H Eos % (Auto) 0.8 Baso % (Auto) 0.6 Neut # (Auto) 6.6 Lymph # (Auto) 1.2 [place] # (Auto) 0.8 Eos # (Auto) 0.1 Baso # (Auto) 0.1 WBC Differential . Differential Comment Auto diff final APTT 23.2 L Sodium 140 Potassium 3.3 L Chloride 105 Carbon Dioxide 25.6 Anion Gap 9 BUN 18 Creatinine 1.07 H Estimated GFR 50 L Random Glucose 144 H Calcium 8.1 L 06/25/18 06/25/18 01:11 09:33 WBC RBC Hgb Hct MCV MCH MCHC RDW Plt Count MPV Neut % (Auto) Lymph % (Auto) [place] % (Auto) Eos % (Auto) Baso % (Auto) Neut # (Auto) Lymph # (Auto) [place] # (Auto) Eos # (Auto) Baso # (Auto) WBC Differential Differential Comment APTT 31.9 H D 38.5 H D Sodium Potassium Chloride Carbon Dioxide Anion Gap BUN Creatinine Estimated GFR Random Glucose Calcium Assessment and Plan - Assessment (1) Polyp of ascending colon Code(s): D12.2 - Benign neoplasm of ascending colon Status: Acute Plan: Hgb stable, can start Eliquis Still quite distended, hold off on PO for now Mobilize Appreciate Dr. Foss's assistance
[2018-06-25] MEDS: Dextrose 5%/NaCl 0.9% Inj 1,000 ML IV.SIG SCH (15:21)
[2018-06-25] MEDS: Metoprolol Tartrate 50 MG Tablet PO SCH (20:20)
[2018-06-25] MEDS: Heparin Drip 25,000 UNIT/250 ML BAG IV.CONT PRN (22:09)
[2018-06-26] MEDS: Dextrose 5%/NaCl 0.9% Inj 1,000 ML IV.SIG SCH ×3 (00:05→11:44)
[2018-06-26] MEDS: dilTIAZem 30 MG Tablet PO SCH (08:22)
[2018-06-26] MEDS: Simethicone 125 MG Chew Tablet PO SCH (08:22)
[2018-06-26] MEDS: Metoprolol Tartrate 50 MG Tablet PO SCH ×2 (08:23→21:12)
[2018-06-26] MEDS: Famotidine PF Inj 20 MG/2 ML Vial IV.PUSH SCH ×2 (08:24→22:04)
--- NOTE | 2018-06-26 08:50 | P.PN ---
Subjective Interval history: POD#5 s/p robotic ascending colectomy more comfortable, some slight nausea still Physical Exam Vital signs: Vital Signs 06/25/18 09:00 06/25/18 10:00 06/25/18 11:00 Temperature 98.1 F Pulse Rate 96 H 98 H 98 H Respiratory Rate 18 Blood Pressure 118/70 Pulse Oximetry 99 06/25/18 12:00 06/25/18 13:00 06/25/18 14:00 Temperature Pulse Rate 102 H 98 H 98 H Respiratory Rate Blood Pressure Pulse Oximetry 06/25/18 15:00 06/25/18 16:00 06/25/18 17:00 Temperature 98.6 F Pulse Rate 105 H 112 H 126 H Respiratory Rate 18 Blood Pressure 113/66 Pulse Oximetry 94 L 06/25/18 18:00 06/25/18 19:00 06/25/18 20:00 Temperature 97.9 F Pulse Rate 120 H 112 H 110 H Respiratory Rate 18 Blood Pressure 121/80 Pulse Oximetry 95 06/25/18 21:00 06/25/18 22:00 06/25/18 23:00 Temperature 98 F Pulse Rate 108 H 112 H 106 H Respiratory Rate 16 Blood Pressure 103/59 L Pulse Oximetry 95 06/26/18 00:00 06/26/18 01:00 06/26/18 02:00 Temperature Pulse Rate 100 H 115 H 92 H Respiratory Rate Blood Pressure Pulse Oximetry 06/26/18 03:00 06/26/18 04:00 06/26/18 05:00 Temperature 97.9 F Pulse Rate 98 H 114 H 110 H Respiratory Rate 16 Blood Pressure 110/62 Pulse Oximetry 95 06/26/18 05:52 06/26/18 08:05 Temperature 98.0 F Pulse Rate 98 H 123 H Respiratory Rate 16 Blood Pressure 110/70 Pulse Oximetry 94 L Intake & Output 06/25/18 06/26/18 06/26/18 18:59 06:59 18:59 Intake Total 1605 / 1605 390 / 390 Output Total 400 / 400 500 / 500 Balance 1205 / 1205 -110 / -110 Weight 65.5 kg Intake: IV 1125 / 1125 360 / 360 Heparin/D5W 25,000 U/250 mL 25, 360 / 360 000 unit In 250 ml @ 800 UNITS/ HR 8 mls/hr IV.CONT TITRATE PRN Rx#:[id number] Cardizem Inj 125 MG In NS Inj 125 / 125 100 ML @ 5 MG/HR 5 mls/hr IV. CONT TITRATE PRN Rx#:[id number] D5W/Normal Saline Inj 1,000 ML 1000 / 1000 @ 50 mls/hr IV.SIG .Q20H [facility] Rx #:[id number] Oral 480 / 480 30 / 30 Output: Urine 400 / 400 500 / 500 Other: # Voids 2 3 Date of Last Bowel Movement 06/24/18 06/25/18 # Bowel Movements 0 - Routine Abdominal Exam Comments: soft, less distended, nontender wounds clean - Urinary Catheter Management Indwelling Urethral Catheter Cath placed during this visit: yes, but has since been removed by the nurse Reason for continuing: Decision to DC catheter Insertion date: 06/21/18 Insertion time: 15:10 Removal date: 06/22/18 Removal time: 14:05 Results - Labs CBC & Chem 7: 06/25/18 01:11 06/25/18 01:11 Laboratory Results - last 24 hr 06/25/18 06/25/18 06/26/18 09:33 21:07 02:40 APTT 38.5 H D 37.1 H 45.1 H D Assessment and Plan - Assessment (1) Polyp of ascending colon Code(s): D12.2 - Benign neoplasm of ascending colon Status: Acute Plan: Much less distended, try crackers/toast Await appropriate anticoagulation
[2018-06-26] MEDS: dilTIAZem 60 MG Tablet PO SCH ×3 (12:34→21:11)
--- NOTE | 2018-06-26 14:51 | ECHRPT ---
Indication: ATRIAL FIB/FLUTTER CONCLUSIONS Heavily calcified Aortic valve with fusion, cannot exclude the possibility of a bicuspid aortic valv e. 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 ( SHANE 0.6 cm2, Dimensionless Index 0.18 , Stroke Volume Index 18) in the setting of a normal ejection fraction. Mildly dilated proximal ascending aorta at 3.7 cm. The left ventricular systolic function is hyperdynamic with an estimated ejection fraction in the ra nge of 65- 70%. No regional wall motion abnormalities. Normal LV wall thickness and chamber size. Biatrial enlargement. No atrial level shunt is demonstrated by color flow Doppler interrogation. The estimated pulmonary arterial pressure is 41.6 mmHg. IVC not well visualized. No prior echo for comparison. BP: / HR: Rhythm: Sinus MEASUREMENTS (Male / Female) Normal Values Technical Quality:Fair 2D ECHO LV Diastolic Diameter PLAX 3.7 cm 4.2 - 5.9 / 3.9 - 5.3 cm LV Systolic Diameter PLAX 2.3 cm IVS Diastolic Thickness 0.9 cm 0.6 - 1.0 / 0.6 - 0.9 cm LVPW Diastolic Thickness 0.9 cm 0.6 - 1.0 / 0.6 - 0.9 cm LV Relative Wall Thickness 0.5 RV Internal Dim ED PLAX 2.7 cm LVOT Diameter 2.0 cm Aortic Root Diameter 3.0 cm LA Systolic Diameter LX 3.1 cm 3.0 - 4.0 / 2.7 - 3.8 cm M-MODE AV Cusp Separation MM 0.9 cm DOPPLER AV Peak Velocity 305.2 cm/s AV Peak Gradient 37.3 mmHg AV Mean Gradient 19.2 mmHg AV Velocity Time Integral 50.4 cm LVOT Peak Velocity 55.3 cm/s LVOT Peak Gradient 1.2 mmHg LVOT Velocity Time Integral 8.9 cm AV Area Cont Eq vti 0.6 cm AV Area Cont Eq pk 0.6 cm Mitral E Point Velocity 79.2 cm/s LV E' Lateral Velocity 12.8 cm/s Mitral E to LV E' Lateral Ratio 6.2 LV E' Septal Velocity 8.2 cm/s Mitral E to LV E' Septal Ratio 9.7 TR Peak Velocity 281.0 cm/s TR Peak Gradient 31.6 mmHg Right Atrial Pressure 10.0 mmHg Pulmonary Artery Systolic Pressu 41.6 mmHg Right Ventricular Systolic Press 41.6 mmHg PV Peak Velocity 63.5 cm/s PV Peak Gradient 1.6 mmHg FINDINGS LEFT VENTRICLE Normal left ventricular size. Wall thickness is normal. The left ventricular systolic function is hyperdynamic with an estimated ejection fraction in the ra nge of 65- 70%. RIGHT VENTRICLE Normal right ventricular size and systolic function. LEFT ATRIUM The left atrial size is mildly dilated. RIGHT ATRIUM The right atrial size is mildly dilated. ATRIAL SEPTUM No atrial level shunt is demonstrated by color flow Doppler interrogation. AORTA Mildly dilated proximal ascending aorta. Proximal aorta measures 3.7 cm. MITRAL VALVE [id number] mitral valve regurgitation. AORTIC VALVE Right coronary cusp is mildy thickened. The left and non coronary cusp appear to be fused and quite thickened. Aortic valve mean gradient is 19.2 mmHg. TRICUSPID VALVE There is trace tricuspid valve regurgitation. The estimated pulmonary arterial pressure is 41.6 mmHg. PULMONARY VALVE No pulmonary valve regurgitation or stenosis. VESSELS The inferior vena cava was not well visualized. PERICARDIUM No pericardial effusion. Rut Foss MD (Electronically Signed) Final Date:26 June 2018 14:50
[2018-06-26] MEDS ORDERED: Digoxin Inj 500 MCG/2 ML Ampul IV.PUSH ONE ×2 (15:33→15:34)
[2018-06-27] MEDS: dilTIAZem 60 MG Tablet PO SCH ×4 (09:33→21:20)
[2018-06-27] MEDS: Famotidine PF Inj 20 MG/2 ML Vial IV.PUSH SCH ×2 (09:33→21:19)
[2018-06-27] MEDS: Metoprolol Tartrate 50 MG Tablet PO SCH ×2 (09:33→21:20)
[2018-06-27] MEDS: Simethicone 125 MG Chew Tablet PO SCH (09:33)
[2018-06-27] MEDS ORDERED: Digoxin Inj 500 MCG/2 ML Ampul IV.PUSH ONE (09:58)
--- NOTE | 2018-06-27 10:07 | P.PNCA ---
Subjective Interval history: Having nausea. Does not want JOSLYN + cardioversion this am. Medications and Allergies Active Medications: Active Medications Hydrocodone Bitart/Acetaminophen ([place] 5/325) 1 tab PO Q6H PRN PRN Reason: PAIN SCALE 1 TO 5 Hydrocodone Bitart/Acetaminophen ([place] 5/325) 2 tab PO Q6H PRN PRN Reason: PAIN SCALE 6 TO 10 Apixaban (Eliquis) 5 mg PO BID [facility] Last Admin: 06/27/18 09:33 Dose: 5 mg Digoxin (Lanoxin Inj) 125 mcg IV.PUSH ONCE ONE Stop: 06/27/18 09:59 Diltiazem HCl (Cardizem) 60 mg PO QID [facility] Last Admin: 06/27/18 09:33 Dose: 60 mg Famotidine (Pepcid Pf Inj) 20 mg IV.PUSH Q12HR [facility] Last Admin: 06/27/18 09:33 Dose: 20 mg Furosemide (Lasix Inj) 20 mg IV.PUSH BID@0900,1800 [facility] Last Admin: 06/27/18 09:35 Dose: 20 mg Hydromorphone HCl (Dilaudid Pf Inj) 0.2 mg IV.PUSH Q4H PRN PRN Reason: PAIN 1-10 Sodium Chloride (Ns Inj) 500 mls @ 30 mls/hr IV.SIG .Q10H [facility] Last Admin: 06/22/18 10:20 Dose: Not Given Dextrose/Sodium Chloride (D5w/Normal Saline Inj) 1,000 mls @ 50 mls/hr IV.SIG .Q20H [facility] Last Admin: 06/26/18 11:44 Dose: 50 mls/hr Potassium Chloride (Kcl 40 Meq Premix Inj) 40 meq in 100 mls @ 25 mls/hr IV.SIG Q2H PRN PRN Reason: For Potassium 2.8 - 3.2 mEq/L Potassium Chloride (Kcl 20 Meq Premix Inj) 20 meq in 100 mls @ 50 mls/hr IV.SIG Q2H PRN PRN Reason: For Potassium 3.3 - 3.5 mEq/L Potassium Chloride (Kcl 40 Meq Premix Inj) 40 meq in 100 mls @ 25 mls/hr IV.SIG UNSCH PRN PRN Reason: For Potassium 3.3 - 3.5 mEq/L Potassium Chloride (Kcl 20 Meq Premix Inj) 20 meq in 100 mls @ 50 mls/hr IV.SIG Q2H PRN PRN Reason: For Potassium 2.8 - 3.2 mEq/L Diltiazem HCl 125 mg/ Sodium (Chloride) 125 mls @ 5 mls/hr IV.CONT TITRATE PRN ; Protocol PRN Reason: Per Protocol Last Titration: 06/25/18 08:50 Dose: Infused Metoclopramide HCl (Reglan Inj) 10 mg IV.PUSH Q8H [facility]; Protocol Last Admin: 06/27/18 09:33 Dose: 10 mg Metoprolol Tartrate (Lopressor) 50 mg PO BID [facility] Last Admin: 06/27/18 09:33 Dose: 50 mg Ondansetron HCl (Zofran Inj) 4 mg IV.PUSH Q6H PRN PRN Reason: NAUSEA Last Admin: 06/27/18 05:57 Dose: 4 mg Potassium Bicarb/Potassium Chloride (K-Lyte Cl Eff) 50 meq PO UNSCH PRN PRN Reason: For Potassium 3.3 - 3.5 mEq/L Simethicone (Phazyme Chew) 125 mg PO DAILY [facility] Last Admin: 06/27/18 09:33 Dose: 125 mg Temazepam (Restoril) 15 mg PO HS PRN PRN Reason: INSOMNIA Last Admin: 06/22/18 20:55 Dose: 15 mg Allergies Allergy/AdvReac Type Severity Reaction Status Date / Time azithromycin Allergy Severe Anaphylaxis Verified 06/14/18 08:22 doxycycline Allergy Severe Anaphylaxis Verified 06/14/18 08:22 minocycline Allergy Severe Anaphylaxis Verified 06/14/18 08:22 tigecycline Allergy Severe Anaphylaxis Verified 06/14/18 08:22 oxycodone [From Percocet] AdvReac Severe Depression Verified 06/14/18 08:41 Vbwbthr-Cdi-Ewi Reductase AdvReac Severe Muscle Pain Verified 06/14/18 08:22 Inhibitor Home Medications Medication Instructions Recorded Confirmed Type aspirin [Adult Low Dose Aspirin] 81 mg PO DAILY 06/14/18 06/21/18 History calcium carbonate-vitamin D3 2 tab PO DAILY 06/14/18 06/21/18 History [Calcium 600 + D(3)] [id number]-[id number]-calcium-mins 1 tab PO DAILY 06/14/18 06/21/18 History [Daily Multiple For Women] vitamin E 400 unit PO DAILY 06/14/18 06/21/18 History Physical Exam Vital signs: Vital Signs 06/26/18 10:56 06/26/18 11:00 06/26/18 12:08 Temperature 98.7 F Pulse Rate 130 H 133 H 117 H Respiratory Rate 20 Blood Pressure 114/81 Pulse Oximetry 94 L 06/26/18 13:00 06/26/18 14:00 06/26/18 15:00 Temperature Pulse Rate 112 H 112 H 114 H Respiratory Rate Blood Pressure Pulse Oximetry 06/26/18 15:17 06/26/18 16:00 06/26/18 16:36 Temperature 98.3 F Pulse Rate 111 H 110 H 124 H Respiratory Rate 18 Blood Pressure 140/68 117/73 Pulse Oximetry 94 L 06/26/18 16:45 06/26/18 17:00 06/26/18 18:00 Temperature Pulse Rate 102 H 102 H 104 H Respiratory Rate Blood Pressure 136/56 L Pulse Oximetry 06/26/18 19:00 06/26/18 20:00 06/26/18 21:00 Temperature 98.4 F Pulse Rate 96 H 96 H 88 Respiratory Rate 18 Blood Pressure 134/60 Pulse Oximetry 94 L 06/26/18 22:00 06/26/18 23:00 06/27/18 00:00 Temperature 97.9 F Pulse Rate 92 H 114 H 105 H Respiratory Rate 18 Blood Pressure 119/67 Pulse Oximetry 91 L 06/27/18 01:00 06/27/18 02:00 06/27/18 03:00 Temperature 98.2 F Pulse Rate 111 H 97 H 89 Respiratory Rate 22 Blood Pressure 118/57 L Pulse Oximetry 06/27/18 04:00 06/27/18 05:00 06/27/18 06:00 Temperature Pulse Rate 98 H 91 H 96 H Respiratory Rate Blood Pressure Pulse Oximetry 06/27/18 07:00 06/27/18 08:00 06/27/18 09:00 Temperature 98.3 F Pulse Rate 104 H 115 H 108 H Respiratory Rate 20 Blood Pressure 140/80 Pulse Oximetry 95 Intake & Output 06/26/18 06/27/18 06/27/18 18:59 06:59 18:59 Intake Total 1020 / 1020 120 / 120 Output Total 300 / 300 450 / 450 Balance 720 / 720 -330 / -330 Weight 65 kg Intake: IV 900 / 900 D5W/Normal Saline Inj 1,000 ML 900 / 900 @ 50 mls/hr IV.SIG .Q20H [facility] Rx #:[id number] Oral 120 / 120 120 / 120 Output: Urine 300 / 300 400 / 400 Estimated Blood Loss 50 / 50 Other: # Voids 1 Date of Last Bowel Movement 06/26/18 # Bowel Movements 5 0 - Constitutional no acute distress - Routine HEENT Exam Head: Present: normocephalic - Routine Respiratory Exam Present: CTA bilaterally - Routine Cardiovascular Exam Present: S1, S2, murmur (3/6 JUVENTINO RUSB), irregular rhythm - Routine Abdominal Exam Present: soft, normoactive bowel sounds - Routine Extremities Exam Absent: edema - Routine Neurological Exam Present: alert, oriented X3, CN II-XII intact - Routine Psychiatric Exam Present: normal affect - Urinary Catheter Management Indwelling Urethral Catheter Cath placed during this visit: yes, but has since been removed by the nurse Reason for continuing: Decision to DC catheter Insertion date: 06/21/18 Insertion time: 15:10 Removal date: 06/22/18 Removal time: 14:05 Results 06/25/18 01:11 06/25/18 01:11 Coagulation 06/25/18 06/25/18 06/26/18 Range/Units 09:33 21:07 02:40 APTT 38.5 H D 37.1 H 45.1 H D (24.3-30.1) sec Intake and Output 06/26/18 06/27/18 06/27/18 22:59 06:59 14:59 Intake Total 120 / 120 120 / 120 Output Total 300 / 300 450 / 450 Balance -180 / -180 -330 / -330 Intake: Oral 120 / 120 120 / 120 Output: Urine 300 / 300 400 / 400 Estimated Blood Loss 50 / 50 Other: # Voids 1 Date of Last Bowel Movement 06/26/18 06/26/18 # Bowel Movements 5 0 Weight 65 kg Assessment and Plan - Plan New onset afib HR not well controlled. with elevated [id number] score of 3. -given that it was during this hospitalization but she was unable to be started on AC given her surgery, we proceeded with a rate control strategy. She is not well controlled despite Cardiazem 60mg po qid, Metoprolol 50mg BID, and IV dig x 1. She has nausea today that is bothersome and therefore will hold off JOSLYN cardioversion. Will give additional digoxin dose and uptitrate AV faraz agents. She is on Eliquis and tolerating well. Severe with mildly dilated proximal ascending aorta- there is a family history of aneurysm. She will need a workup and CV surgery consultation. She is not interested in pursuing this currently during this hospital stay.
--- NOTE | 2018-06-27 10:45 | P.PN ---
Subjective Interval history: POD#6 s/p robotic ascending colectomy still with nausea, hungry Physical Exam Vital signs: Vital Signs 06/26/18 10:56 06/26/18 11:00 06/26/18 12:08 Temperature 98.7 F Pulse Rate 130 H 133 H 117 H Respiratory Rate 20 Blood Pressure 114/81 Pulse Oximetry 94 L 06/26/18 13:00 06/26/18 14:00 06/26/18 15:00 Temperature Pulse Rate 112 H 112 H 114 H Respiratory Rate Blood Pressure Pulse Oximetry 06/26/18 15:17 06/26/18 16:00 06/26/18 16:36 Temperature 98.3 F Pulse Rate 111 H 110 H 124 H Respiratory Rate 18 Blood Pressure 140/68 117/73 Pulse Oximetry 94 L 06/26/18 16:45 06/26/18 17:00 06/26/18 18:00 Temperature Pulse Rate 102 H 102 H 104 H Respiratory Rate Blood Pressure 136/56 L Pulse Oximetry 06/26/18 19:00 06/26/18 20:00 06/26/18 21:00 Temperature 98.4 F Pulse Rate 96 H 96 H 88 Respiratory Rate 18 Blood Pressure 134/60 Pulse Oximetry 94 L 06/26/18 22:00 06/26/18 23:00 06/27/18 00:00 Temperature 97.9 F Pulse Rate 92 H 114 H 105 H Respiratory Rate 18 Blood Pressure 119/67 Pulse Oximetry 91 L 06/27/18 01:00 06/27/18 02:00 06/27/18 03:00 Temperature 98.2 F Pulse Rate 111 H 97 H 89 Respiratory Rate 22 Blood Pressure 118/57 L Pulse Oximetry 06/27/18 04:00 06/27/18 05:00 06/27/18 06:00 Temperature Pulse Rate 98 H 91 H 96 H Respiratory Rate Blood Pressure Pulse Oximetry 06/27/18 07:00 06/27/18 08:00 06/27/18 09:00 Temperature 98.3 F Pulse Rate 104 H 115 H 108 H Respiratory Rate 20 Blood Pressure 140/80 Pulse Oximetry 95 Intake & Output 06/26/18 06/27/18 06/27/18 18:59 06:59 18:59 Intake Total 1020 / 1020 120 / 120 Output Total 300 / 300 450 / 450 Balance 720 / 720 -330 / -330 Weight 65 kg Intake: IV 900 / 900 D5W/Normal Saline Inj 1,000 ML 900 / 900 @ 50 mls/hr IV.SIG .Q20H [facility] Rx #:[id number] Oral 120 / 120 120 / 120 Output: Urine 300 / 300 400 / 400 Estimated Blood Loss 50 / 50 Other: # Voids 1 Date of Last Bowel Movement 06/26/18 # Bowel Movements 5 0 - Routine Abdominal Exam Comments: abdomen soft, nondistended, nontender wounds clean - Urinary Catheter Management Indwelling Urethral Catheter Cath placed during this visit: yes, but has since been removed by the nurse Reason for continuing: Decision to DC catheter Insertion date: 06/21/18 Insertion time: 15:10 Removal date: 06/22/18 Removal time: 14:05 Results - Labs CBC & Chem 7: 06/25/18 01:11 06/25/18 01:11 Assessment and Plan - Assessment (1) Polyp of ascending colon Code(s): D12.2 - Benign neoplasm of ascending colon Status: Acute Plan: OK for regular diet stop IVF, increase lasix Pt declined cardioversion today
--- NOTE | 2018-06-28 08:44 | P.PN ---
Subjective Interval history: POD#7 s/p robotic ascending colectomy Afib/RVR comfortable, ready to go home Physical Exam Vital signs: Vital Signs 06/27/18 09:00 06/27/18 10:00 06/27/18 11:00 Temperature 98.5 F Pulse Rate 108 H 92 H 83 Respiratory Rate 20 Blood Pressure 134/62 Pulse Oximetry 95 06/27/18 12:00 06/27/18 13:00 06/27/18 14:00 Temperature Pulse Rate 85 88 85 Respiratory Rate Blood Pressure Pulse Oximetry 06/27/18 15:00 06/27/18 16:00 06/27/18 17:00 Temperature 98.6 F Pulse Rate 103 H 88 86 Respiratory Rate 18 Blood Pressure 124/62 Pulse Oximetry 95 06/27/18 18:00 06/27/18 20:00 06/27/18 22:00 Temperature 97.8 F Pulse Rate 85 95 H 87 Respiratory Rate 18 Blood Pressure 100/58 L Pulse Oximetry 93 L 06/28/18 00:00 06/28/18 02:00 06/28/18 04:00 Temperature 98.0 F 98.2 F Pulse Rate 88 100 H 89 Respiratory Rate 16 16 Blood Pressure 112/72 111/65 Pulse Oximetry 93 L 94 L 06/28/18 06:00 Temperature Pulse Rate 109 H Respiratory Rate Blood Pressure Pulse Oximetry Intake & Output 06/27/18 06/28/18 06/28/18 18:59 06:59 18:59 Intake Total 2100 / 2100 240 / 240 Output Total 900 / 900 400 / 400 Balance 1200 / 1200 -160 / -160 Weight 63.9 kg Intake: IV 900 / 900 D5W/Normal Saline Inj 1,000 ML 900 / 900 @ 50 mls/hr IV.SIG .Q20H [facility] Rx #:[id number] Oral 1200 / 1200 240 / 240 Output: Urine 900 / 900 400 / 400 Other: Date of Last Bowel Movement 06/27/18 # Bowel Movements 0 1 - Routine Abdominal Exam Comments: soft, nondistended, nontender wounds clean - Urinary Catheter Management Indwelling Urethral Catheter Cath placed during this visit: yes, but has since been removed by the nurse Reason for continuing: Decision to DC catheter Insertion date: 06/21/18 Insertion time: 15:10 Removal date: 06/22/18 Removal time: 14:05 Results - Labs CBC & Chem 7: 06/25/18 01:11 06/25/18 01:11 Assessment and Plan - Assessment (1) Polyp of ascending colon Code(s): D12.2 - Benign neoplasm of ascending colon Status: Acute Plan: OK to go home when ok with [employer] Followup with me 3 weeks.
[2018-06-28] MEDS: Metoprolol Tartrate 50 MG Tablet PO SCH (08:51)
[2018-06-28] MEDS: Famotidine PF Inj 20 MG/2 ML Vial IV.PUSH SCH (08:51)
[2018-06-28] MEDS: Simethicone 125 MG Chew Tablet PO SCH (08:52)
[2018-06-28] MEDS: dilTIAZem 60 MG Tablet PO SCH (08:52)
--- NOTE | 2018-06-28 11:00 | P.PNCA ---
Subjective Interval history: No acute events. No more nausea. Medications and Allergies Active Medications: Active Medications Hydrocodone Bitart/Acetaminophen ([place] 5/325) 1 tab PO Q6H PRN PRN Reason: PAIN SCALE 1 TO 5 Hydrocodone Bitart/Acetaminophen ([place] 5/325) 2 tab PO Q6H PRN PRN Reason: PAIN SCALE 6 TO 10 Last Admin: 06/28/18 08:51 Dose: 2 tab Apixaban (Eliquis) 5 mg PO BID [facility] Last Admin: 06/28/18 08:52 Dose: 5 mg Famotidine (Pepcid Pf Inj) 20 mg IV.PUSH Q12HR [facility] Last Admin: 06/28/18 08:51 Dose: 20 mg Furosemide (Lasix Inj) 20 mg IV.PUSH TID [facility] Last Admin: 06/28/18 08:52 Dose: 20 mg Hydromorphone HCl (Dilaudid Pf Inj) 0.2 mg IV.PUSH Q4H PRN PRN Reason: PAIN 1-10 Sodium Chloride (Ns Inj) 500 mls @ 30 mls/hr IV.SIG .Q10H [facility] Last Admin: 06/22/18 10:20 Dose: Not Given Potassium Chloride (Kcl 40 Meq Premix Inj) 40 meq in 100 mls @ 25 mls/hr IV.SIG Q2H PRN PRN Reason: For Potassium 2.8 - 3.2 mEq/L Potassium Chloride (Kcl 20 Meq Premix Inj) 20 meq in 100 mls @ 50 mls/hr IV.SIG Q2H PRN PRN Reason: For Potassium 3.3 - 3.5 mEq/L Potassium Chloride (Kcl 40 Meq Premix Inj) 40 meq in 100 mls @ 25 mls/hr IV.SIG UNSCH PRN PRN Reason: For Potassium 3.3 - 3.5 mEq/L Potassium Chloride (Kcl 20 Meq Premix Inj) 20 meq in 100 mls @ 50 mls/hr IV.SIG Q2H PRN PRN Reason: For Potassium 2.8 - 3.2 mEq/L Diltiazem HCl 125 mg/ Sodium (Chloride) 125 mls @ 5 mls/hr IV.CONT TITRATE PRN ; Protocol PRN Reason: Per Protocol Last Titration: 06/25/18 08:50 Dose: Infused Metoclopramide HCl (Reglan Inj) 10 mg IV.PUSH Q8H [facility]; Protocol Last Admin: 06/28/18 08:52 Dose: 10 mg Metoprolol Succinate (Toprol Xl) 75 mg PO ONCE ONE Stop: 06/28/18 10:59 Ondansetron HCl (Zofran Inj) 4 mg IV.PUSH Q6H PRN PRN Reason: NAUSEA Last Admin: 06/27/18 05:57 Dose: 4 mg Potassium Bicarb/Potassium Chloride (K-Lyte Cl Eff) 50 meq PO UNSCH PRN PRN Reason: For Potassium 3.3 - 3.5 mEq/L Simethicone (Phazyme Chew) 125 mg PO DAILY [facility] Last Admin: 06/28/18 08:52 Dose: 125 mg Temazepam (Restoril) 15 mg PO HS PRN PRN Reason: INSOMNIA Last Admin: 06/22/18 20:55 Dose: 15 mg Allergies Allergy/AdvReac Type Severity Reaction Status Date / Time azithromycin Allergy Severe Anaphylaxis Verified 06/14/18 08:22 doxycycline Allergy Severe Anaphylaxis Verified 06/14/18 08:22 minocycline Allergy Severe Anaphylaxis Verified 06/14/18 08:22 tigecycline Allergy Severe Anaphylaxis Verified 06/14/18 08:22 oxycodone [From Percocet] AdvReac Severe Depression Verified 06/14/18 08:41 Vjuqbyx-Pgf-Spc Reductase AdvReac Severe Muscle Pain Verified 06/14/18 08:22 Inhibitor Home Medications Medication Instructions Recorded Confirmed Type aspirin [Adult Low Dose Aspirin] 81 mg PO DAILY 06/14/18 06/21/18 History calcium carbonate-vitamin D3 2 tab PO DAILY 06/14/18 06/21/18 History [Calcium 600 + D(3)] [id number]-guvw-KF-calcium-mins 1 tab PO DAILY 06/14/18 06/21/18 History [Daily Multiple For Women] vitamin E 400 unit PO DAILY 06/14/18 06/21/18 History Physical Exam Vital signs: Vital Signs 06/27/18 12:00 06/27/18 13:00 06/27/18 14:00 Temperature Pulse Rate 85 88 85 Respiratory Rate Blood Pressure Pulse Oximetry 06/27/18 15:00 06/27/18 16:00 06/27/18 17:00 Temperature 98.6 F Pulse Rate 103 H 88 86 Respiratory Rate 18 Blood Pressure 124/62 Pulse Oximetry 95 06/27/18 18:00 06/27/18 20:00 06/27/18 22:00 Temperature 97.8 F Pulse Rate 85 95 H 87 Respiratory Rate 18 Blood Pressure 100/58 L Pulse Oximetry 93 L 06/28/18 00:00 06/28/18 02:00 06/28/18 04:00 Temperature 98.0 F 98.2 F Pulse Rate 88 100 H 89 Respiratory Rate 16 16 Blood Pressure 112/72 111/65 Pulse Oximetry 93 L 94 L 06/28/18 06:00 Temperature Pulse Rate 109 H Respiratory Rate Blood Pressure Pulse Oximetry Intake & Output 06/27/18 06/28/18 06/28/18 18:59 06:59 18:59 Intake Total 2100 / 2100 240 / 240 Output Total 900 / 900 400 / 400 Balance 1200 / 1200 -160 / -160 Weight 63.9 kg Intake: IV 900 / 900 D5W/Normal Saline Inj 1,000 ML 900 / 900 @ 50 mls/hr IV.SIG .Q20H [facility] Rx #:[id number] Oral 1200 / 1200 240 / 240 Output: Urine 900 / 900 400 / 400 Other: Date of Last Bowel Movement 06/27/18 # Bowel Movements 0 1 - Constitutional no acute distress - Routine HEENT Exam Head: Present: normocephalic Eye: Present: EOMI - Routine Neck Exam Absent: JVD - Routine Cardiovascular Exam Present: S1 (3/6 JUVENTINO over RUSB obscuring ), murmur, irregular rhythm - Routine Abdominal Exam Present: soft, normoactive bowel sounds - Routine Extremities Exam Absent: edema - Routine Neurological Exam Present: alert, oriented X3 - Urinary Catheter Management Indwelling Urethral Catheter Cath placed during this visit: yes, but has since been removed by the nurse Reason for continuing: Decision to DC catheter Insertion date: 06/21/18 Insertion time: 15:10 Removal date: 06/22/18 Removal time: 14:05 Results 06/25/18 01:11 06/25/18 01:11 Intake and Output 06/27/18 06/28/18 06/28/18 22:59 06:59 14:59 Intake Total 1200 / 1200 240 / 240 Output Total 900 / 900 400 / 400 Balance 300 / 300 -160 / -160 Intake: Oral 1200 / 1200 240 / 240 Output: Urine 900 / 900 400 / 400 Other: Date of Last Bowel Movement 06/27/18 06/27/18 # Bowel Movements 0 1 Weight 63.9 kg Assessment and Plan - Plan New onset afib HR not well controlled. with elevated [id number] score of 3. -Will convert to Toprolol 75mg XL po qday and Cardiazem 240mg ER po qday continue Eliquis 5 mg po BID Severe with mildly dilated proximal ascending aorta- there is a family history of aneurysm. She will need a workup and CV surgery consultation. She is not interested in pursuing this currently during this hospital stay. Patient to follow up in clinic in 1-2 weeks. Patient resting HR less than 110 and should continue to improve as GI symptoms improve. Ok from a CV perspective. If patient remains inpatient my colleague Dr. Chavez will be around to answer any questions.
[2018-06-28] MEDS ORDERED: dilTIAZem CD 240 MG Capsule PO SCH (12:00)
[2018-06-28 13:43] VITALS: BP 110/68; PULSE 113; RESP 19; TEMP 98.3; O2SAT 95
--- NOTE | 2018-06-28 19:36 | ECG ---
Date Performed: 06/28/2018 Time Performed: 05:29:30 PTAGE: 78 years EKG: Atrial fibrillation with rapid ventricular response. Extensive ST-T changes are nonspecific Abnormal ECG PREVIOUS TRACING : 06/24/2018 02.53 Compared to previous tracing, ventricular response to afib is slower DOCTOR: Ole Lock Interpretating Date/Time 06/28/2018 19:36:37
--- NOTE | 2018-07-17 03:51 | MD ---
cc: Felipa Troncoso MD DATE OF DISCHARGE: 06/28/2018 ADMISSION DIAGNOSIS: Ascending colon polyp. DISCHARGE DIAGNOSES: 1. Ascending colon polyp. 2. New onset atrial fibrillation with rapid ventricular response. HOSPITAL COURSE: The patient is a 78-year-old female who on recent colonoscopy was noted to have a large ascending colon polyp. She was admitted to the hospital on 06/21/2018 after an outpatient bowel prep. She was taken to the operating room where she underwent the above-named procedures. Postoperatively, she did well with the exception of the development of atrial fibrillation with a rapid ventricular response. She was treated by cardiology with metoprolol, Cardizem, and Eliquis and was discharged on 06/28/2018 and was instructed to follow up with myself and cardiovascular. Final pathology was not available at the time of discharge. Felpia Troncoso MD KW/sv , 12:31 AM , 12:36 AM
== END 2018-06-28 14:10 | disposition home or self-care (01) ==
LOC: HSDI 11:14 → HCPC 18:40
PROVIDERS: ADMIT Colon & Rectal Surgery; ATTEND Colon & Rectal Surgery